=== PATIENT | female | born 1990 | race Caucasian/White ===

== ENCOUNTER 2021-02-17 16:16 | Emergency (ER) | payer BC, MEDICAID ==
[~2021-02-17] VITALS: Ht 172.7 cm; Wt 63.6 kg
[2021-02-17 16:25] VITALS: BP 115/70
== END 2021-02-17 21:07 | disposition home or self-care (01) ==
LOC: ER 16:17
DX: M54.2 Cervicalgia (principal); R51.9 Headache, unspecified; R10.30 Lower abdominal pain, unspecified; V87.7XXA Person injured in collision between other specified motor vehicles (traffic), initial encounter; Y93.89 Activity, other specified; Y92.89 Other specified places as the place of occurrence of the external cause; Y99.8 Other external cause status
CPT/HCPCS: 70450; 99284

== ENCOUNTER 2022-08-10 18:39 | Emergency (ER) | payer BC, MEDICAID, OTHER ==
[~2022-08-10] VITALS: Ht 172.7 cm; Wt 70.5 kg
[2022-08-10 18:43] VITALS: BP 118/85
[2022-08-10 19:25] LABS: CLARITY,URINE SLIGHTLY CLOUDY (Clear); COLOR,URINE STRAW (Yellow); GLUCOSE, URINE NEGATIVE (Neg); KETONES,URINE NEGATIVE (Neg); LEUKOCYTE ESTERASE ,URINE LARGE (Neg); NITRITES, URINE NEGATIVE (Neg); OCCULT BLOOD,URINE LARGE (Neg); PH,URINE 6.5 (4.8-8.0); PROTEIN,URINE TRACE mg/dl (Neg); URINE HCG NEGATIVE (NEG); UROBILINOGEN,URINE 0.2 E.U/dL (0.2-1.0)
[2022-08-10 19:28] LABS: UA COLLECTION TYPE CLN CATCH MIDSTREAM
[2022-08-10 19:32] LABS: BACTERIA,URINE 1+ /HPF (Neg); SQUAMOUS EPITHELIAL CELL,UR FEW /LPF (FEW); TRANSITIONAL EPI CELLS,URINE FEW /HPF; WBC,URINE TNTC /HPF (0-4)
[2022-08-10 19:33] LABS: MUCUS STRANDS FEW /LPF (Neg); WBC CLUMPS,URINE MODERATE /HPF (NEGATIVE)
[2022-08-10] MEDS ORDERED: ciprofloxacin 250mg tablet PO ONE (20:15)
[2022-08-10] MEDS ORDERED: AMOX-117 PO (20:17)
[2022-08-10] MEDS ORDERED: amox tr/potassium clavulanate 875/125mg TAB PO ONE (20:20)
== END 2022-08-10 20:37 | disposition home or self-care (01) ==
LOC: ER 18:40
DX: N10 Acute pyelonephritis (principal); Z59.00 Homelessness unspecified; Z88.5 Allergy status to narcotic agent
CPT/HCPCS: 81001; 81025; 87088; 99283